=== PATIENT | female | born 1975 | race Caucasian/White ===

== ENCOUNTER 2022-02-22 09:28 | Day surgery (SDC) | payer BC ==
[~2022-02-22 09:28] MED LIST: Albuterol 0.083% 2.5 MG/3 ML Neb Soln NEB PRN; HYDROmorphone 1 MG/ML Syringe IVPUSH PRN; Metoclopramide 10 MG/2 ML SDV IVPUSH PRN; Naloxone 0.4 MG/ML SDV IVPUSH PRN; Ondansetron 4 MG/2 ML SDV IVPUSH PRN; fentaNYL 100 MCG/2 ML SDV IVPUSH PRN
[2022-02-22] MEDS: Lactated Ringers 1,000 ML IV SCH (10:04)
[2022-02-22] MEDS ORDERED: Sugammadex Sodium 200 MG/2 ML VIAL ONE (11:21)
[2022-02-22] MEDS ORDERED: Fluorescein 5 ML Vial ONE ×2 (11:25→12:58)
[2022-02-22] MEDS ORDERED: Octyl 2-Cyanoacrylate 1 Tube ONE (11:26)
[2022-02-22] MEDS ORDERED: Midazolam 1 MG/ML 2 ML SDV ONE (11:30)
[2022-02-22] MEDS ORDERED: Ondansetron 4 MG/2 ML SDV ONE (11:30)
[2022-02-22] MEDS ORDERED: Dexamethasone 4 MG/ML 5 ML MDV ONE (11:30)
[2022-02-22] MEDS ORDERED: Propofol 200 MG/20 ML SDV ONE (11:30)
[2022-02-22] MEDS ORDERED: fentaNYL 100 MCG/2 ML SDV ONE ×2 (11:30→12:40)
[2022-02-22] MEDS ORDERED: Lidocaine 2% 5 ML SDV ONE (11:30)
[2022-02-22] MEDS ORDERED: Lidocaine 2% Jelly 30 ML Tube ONE (11:36)
[2022-02-22] MEDS ORDERED: Phenylephrine 1% 10 MG/ML SDV ONE (12:10)
[2022-02-22] MEDS ORDERED: Ketorolac 30 MG/ML SDV ONE (12:33)
[2022-02-22] MEDS ORDERED: Furosemide 40 MG/4 ML VIAL ONE (12:50)
[2022-02-22 14:22] VITALS: BP 118/71; PULSE 79
== END 2022-02-22 14:37 | disposition home or self-care (01) ==
LOC: MW.SDS 09:28
PROVIDERS: ATTEND Obstetrics & Gynecology
DX: N39.3 Stress incontinence (female) (male) (principal); I10 Essential (primary) hypertension; F41.9 Anxiety disorder, unspecified; F32.A Depression, unspecified; E55.9 Vitamin D deficiency, unspecified; I48.91 Unspecified atrial fibrillation; G47.30 Sleep apnea, unspecified; E66.01 Morbid (severe) obesity due to excess calories; F17.290 Nicotine dependence, other tobacco product, uncomplicated; Z91.030 Bee allergy status; Z91.048 Other nonmedicinal substance allergy status; Z68.43 Body mass index [BMI] 50.0-59.9, adult; Z79.01 Long term (current) use of anticoagulants; Z79.899 Other long term (current) drug therapy
CPT/HCPCS: 81025; 82947; A9270-GY; J0131; J1100; J1885; J1940; J2250; J2370; J2405; J2704; J3010; J3490; J7120

== ENCOUNTER 2023-12-21 19:25 | Emergency (ER) | payer BC ==
[2023-12-21 20:13] LABS: BASOPHILS ABSOLUTE AUTO 0.02 K/uL (0.00-0.20); BASOPHILS PERCENT AUTO 0.2 % (0.0-1.0); EOSINOPHILS ABSOLUTE AUTO 0.04 K/uL (0.00-0.45); EOSINOPHILS PERCENT AUTO 0.4 % (0.0-6.0); HEMATOCRIT 40.5 % (37.0-47.0); HEMOGLOBIN 13.7 g/dL (12.0-16.0); IMMATURE GRAN ABSOLUTE AUTO 0.02 K/uL (0.00-0.05); IMMATURE GRAN PERCENT AUTO 0.2 % (0.0-0.4); LYMPHOCYTES PERCENT AUTO 38.9 % (24.0-44.0); MEAN CORPUSCULAR HEMOGLOBIN 30.6 pg (28.0-32.0); MEAN CORPUSCULAR HGB CONC 33.8 g/dL (32.0-36.0); MEAN CORPUSCULAR VOLUME 90.6 fL (83.0-99.0); MEAN PLATELET VOLUME 9.3 fL (9.4-12.3); MONOCYTES ABSOLUTE AUTO 0.44 K/uL (0.00-0.80); MONOCYTES PERCENT AUTO 4.8 % (0.0-8.0); NEUTROPHILS ABSOLUTE AUTO 5.14 K/uL (1.80-7.70); NEUTROPHILS PERCENT AUTO 55.5 % (41.0-71.0); PLATELET COUNT,PLT 306 K/uL (150-400); RED BLOOD CELL COUNT 4.47 M/uL (4.10-5.30); WHITE BLOOD CELL COUNT,WBC 9.26 K/uL (3.9-11.3)
[2023-12-21] MEDS: Sodium Chloride 0.9% 10 ML Syringe FLUSH PRN (20:42)
[2023-12-21] MEDS: Sodium Chloride 0.9% 2.5 ML Syringe FLUSH PRN (20:42)
[2023-12-21 20:53] LABS: A/G RATIO 0.9 (0.9-1.6); ALBUMIN 3.2 g/dL (3.4-5.0); BILIRUBIN TOTAL 0.2 mg/dL (0.2-1.0); CALCIUM 9.1 mg/dL (8.5-10.1); CARBON DIOXIDE,CO2 26.1 mmol/L (21.0-32.0); DIGOXIN 0.4 ng/mL (0.9-2.0); EST CRCL DRUG DOSING (CG) 62.58 mL/min; POTASSIUM,K 4.3 mmol/L (3.5-5.1); PROTEIN TOTAL,TP 6.6 g/dL (6.4-8.2)
== END 2023-12-21 22:25 | disposition home or self-care (01) ==
LOC: MW.ED 19:25
DX: R00.1 Bradycardia, unspecified (principal); I48.91 Unspecified atrial fibrillation; E66.9 Obesity, unspecified; Z68.43 Body mass index [BMI] 50.0-59.9, adult; Z91.09 Other allergy status, other than to drugs and biological substances; Z91.030 Bee allergy status; Z79.01 Long term (current) use of anticoagulants; Z79.899 Other long term (current) drug therapy; Z79.84 Long term (current) use of oral hypoglycemic drugs
CPT/HCPCS: 36415; 71045; 80053; 80162; 84484; 85025; 93005; 99284; J3490; 93010; 99282